=== PATIENT | female | born 1940 | race Caucasian/White ===

== ENCOUNTER 2018-04-26 19:40 | Emergency (ER) | payer MEDICARE, OTHER ==
[~2018-04-26] VITALS: Ht 167.6 cm; Wt 78.0 kg
[~2018-04-26 19:40] MED LIST: AMLO5CAP PO; ATOR80TA41 PO; BISC10SU PR; DOCU1CAP39 PO; HYDR-3580 PO; IMDU30TA PO; LEVE250 OR; LEVOPOW PO; METO100 PO; MILKSUS5 PO; MORP1INJ45 PO; MULT-65 PO; NITR0.4S SL; OMEP20TA PO; SERT-132 PO; iron PO
[2018-04-26 19:48] VITALS: BP 132/71; PULSE 77; RESP 18; TEMP 98.5; O2SAT 97
[2018-04-26] MEDS ORDERED: SERT-129 PO (21:36)
[2018-04-26] MEDS ORDERED: LIPI40TA PO (21:36)
[2018-04-26] MEDS ORDERED: METO-426 PO (21:36)
[2018-04-26] MEDS ORDERED: LEVE250 PO (21:36)
[2018-04-26] MEDS ORDERED: COLA100C5 PO (21:36)
[2018-04-26] MEDS ORDERED: ISOS20TA PO (21:36)
[2018-04-26] MEDS ORDERED: LEVO100T5 PO (21:36)
[2018-04-26] MEDS ORDERED: OMEP20TA93 PO (21:36)
[2018-04-26] MEDS ORDERED: AMLO5TAB2 PO (21:36)
--- NOTE | 2018-04-26 22:23 | RADRPT ---
EXAM DATE: 04/26/2018 10:20 PM EDT AGE/SEX: 78 years / Female INDICATIONS: Trauma, fall. CLINICAL DATA: This is the patient's initial encounter. Patient reports that signs and symptoms have been present for 1 day and indicates a pain score of 5/10. MEDICAL/SURGICAL HISTORY: Multiple sclerosis. Hypertension. Seizure. . RADIATION DOSE: 33.90 CTDI (mGy) [place] [facility] [place]2012. . TECHNIQUE: CT of the head without contrast. Using automated exposure control and adjustment of the mA and/or kV according to patient size, radiation dose was kept as low as reasonably achievable to ob tain optimal diagnostic quality images. FINDINGS: Cerebrum: The ventricles are normal for age. No evidence of midline shift, mass lesion, hemorrhage or acute infarction. No extraaxial fluid collections are seen. Posterior Fossa: The cerebellum and brainstem are intact. The 4th ventricle is midline. The cerebe llopontine angle is unremarkable. Extracranial: The visualized portion of the orbits is intact. Skull: The calvaria is intact. No evidence of skull fracture. CONCLUSION: 1. No acute intracranial abnormalities. Chronic white matter ischemic changes similar to 2013. Electronically signed by: Patricio Moreira MD 04/26/2018 10:22 PM EDT
[2018-04-26] MEDS ORDERED: PERC5TAB12 PO (22:56)
--- NOTE | 2018-04-26 22:57 | PD ---
HPI Chief Complaint: Fall Time Seen by Provider: 21:45 Travel History International Travel<30 days: No Contact w/Intl Traveler<30days: No Traveled to known affect area: No History of Present Illness HPI Patient is a 78-year-old female presents the emergency department status post fall. She has MS and difficulty walking this was a mechanical fall. She struck her head on a door frame and wall. No loss of consciousness. No laceration or bleeding. Patient is at baseline at this time PFS Past Medical History Depression: Yes Heart Rhythm Problems: Yes Cancer: Yes (skin) Cardiac Catheterization: Yes Cardiovascular Problems: Yes (hx of by-pass) High Cholesterol: Yes Chest Pain: Yes Coronary Artery Disease: Yes Diabetes: No Diminished Hearing: Yes (BILAT HEARING AIDS ) Endocrine: No Gastrointestinal Disorders: No (HX OF IBS) Genitourinary: No Hepatitis: No Hiatal Hernia: No Hypertension: Yes Immune Disorder: No Musculoskeletal: Yes (back problems) Neurologic: Yes (seizures) Psychiatric: Yes (pt states she is depressed) Respiratory: No Thyroid Disease: Yes Menopausal: Yes Past Surgical History Appendectomy: Yes Cardiac Surgery: Yes (PROLAPSED VALVE REPAIR ) Cholecystectomy: Yes Coronary Artery Bypass Graft: Yes Gynecologic Surgery: Yes (hysterectomy) Hysterectomy: Yes Joint Replacement: No Oral Surgery: Yes (tonsillectomy) Pacemaker: No Tonsillectomy: Yes Family History Family Myocardial Infarction: Yes (SISTER) Social History Alcohol Use: Yes (OCCAS) Tobacco Use: No Substance Use: No Allergies-Medications (Allergen,Severity, Reaction): Coded Allergies: Sulfa (Sulfonamide Antibiotics) (Unverified Allergy, Severe, "RASH", ) bupivacaine (Unverified Adverse Reaction, Severe, "LEGS BECOME NUMB", 04/26) Reported Meds & Prescriptions Reported Meds & Active Scripts Active Reported Sertraline (Sertraline HCl) 100 Mg Tab 100 Mg PO DAILY Omeprazole 20 Mg Tab 20 Mg PO DAILY Metoprolol Tartrate 75 Mg Tab 75 Mg PO BID Levothyroxine (Levothyroxine Sodium) 100 Mcg Tab 100 Mcg PO DAILY Keppra (Levetiracetam) 250 Mg Tab 250 Mg PO BID Isosorbide Mononitrate 20 Mg Tab 20 Mg PO BID Take 2 doses 7 hours apart. Colace (Docusate Sodium) 100 Mg Capsule 100 Mg PO BID Lipitor (Atorvastatin Calcium) 40 Mg Tab 40 Mg PO HS Amlodipine (Amlodipine Besylate) 5 Mg Tab 5 Mg PO DAILY Review of Systems Except as stated in HPI: all other systems reviewed are Neg Neurologic: No: Weakness, Dizziness, Syncope Physical Exam Narrative GENERAL: 78-year-old female in no distress SKIN: Focused skin assessment warm/dry. HEAD: Atraumatic. Normocephalic. EYES: Pupils equal and round. No scleral icterus. No injection or drainage. ENT: No nasal bleeding or discharge. Mucous membranes pink and moist. NECK: Trachea midline. No no midline tenderness in fact no tenderness at all. CARDIOVASCULAR: Regular rate and rhythm. No murmur appreciated. RESPIRATORY: No accessory muscle use. Clear to auscultation. Breath sounds equal bilaterally. GASTROINTESTINAL: Abdomen soft, non-tender, nondistended. Hepatic and splenic margins not palpable. MUSCULOSKELETAL: No obvious deformities. No clubbing. No cyanosis. No edema. NEUROLOGICAL: Awake and alert. No obvious cranial nerve deficits. Motor grossly within normal limits. Normal speech. Data Data Last Documented VS Vital Signs Date Time Temp Pulse Resp B/P (MAP) Pulse Ox O2 Delivery O2 Flow Rate FiO2 04/26/18 19:48 98.5 77 18 132/71 (91) [address] Brain W/O Iv Contrast(Rout) (04/26/18 ) MDM Medical Decision Making Medical Screen Exam Complete: Yes Emergency Medical Condition: Yes Differential Diagnosis Mechanical fall, closed head injury Narrative Course Patient was seen and evaluated in the emergency department. She has a small hematoma on the top of her head with no laceration requiring suturing. She was discharged home with a prescription for Percocet. She is asked to follow-up with her regular physician in 48 hours Diagnosis Primary Impression: Closed head injury Qualified Codes: S09.90XA - Unspecified injury of head, initial encounter Additional Impression: Fall Qualified Codes: W19.XXXA - Unspecified fall, initial encounter Med/Other Pt SpecificInfo: Prescription(s) given Scripts Oxycodone-Acetaminophen (Percocet) 5-325 mg Tab 1 TAB PO Q8HR Y for PAIN, #12 TAB 0 Refills Prov: Elisabeth Hernandez DO 04/26/18 Disposition: 01 DISCHARGE HOME Condition: Good Elisabeth Hernandez DO Apr 26, 2018 22:57
== END 2018-04-26 23:07 | disposition home or self-care (01) ==
LOC: NEPC 19:40
DX: S09.90XA Unspecified injury of head, initial encounter (principal); E78.00 Pure hypercholesterolemia, unspecified; I10 Essential (primary) hypertension; G35 Multiple sclerosis; W19.XXXA Unspecified fall, initial encounter
CPT/HCPCS: 70450; 99283